=== PATIENT | female | born 1980 | race Caucasian/White ===

== ENCOUNTER 2018-02-08 17:23 | Emergency (ER) | payer OTHER ==
[2018-02-08] MEDS ORDERED: PROMETHAZINE HCL 25 MG/ML INJ IVP ONE (18:29)
[2018-02-08 18:33] LABS: PLATELET COUNT 303 10^3/uL (150-400)
--- NOTE | 2018-02-08 18:46 | EDPHY ---
General Time Seen by Provider: 02/08/18 18:25 Narrative: CHIEF COMPLAINT: Abdominal pelvic pain HISTORY OF PRESENT ILLNESS: Patient presents by private vehicle with her spouse with complaints of abdominal pelvic pain. Pain originally started 1-2 weeks ago. It has been constant duration. Located in the umbilicus and now into the right lower quadrant and pelvis. She states the pain significantly increased over the past 3 hr after eating. Pain typically does worsen the course of several hours after eating but then improved but does resolved. Associated with nausea before but not vomiting. No bloody stools or emesis. No constipation. She is status post appendectomy and does have history of ovarian cyst, but she feels these are 2 separate types of pain. LMP: January 15, 2018 REVIEW OF SYSTEMS: 10 systems were reviewed and negative with the exception of the elements mentioned in the history of present illness. PCP: None SPECIALISTS: Playground Attendant at [facility], Dr. Vines PAST MEDICAL HISTORY: Ovarian cysts, migraines, appendicitis PAST SURGICAL HISTORY: Appendectomy, ovarian cystectomy, breast cystectomy, bunionectomy SOCIAL HISTORY: Never smoker. Lives independently with her significant other. 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 Conversing in complete sentences. Nontoxic well-appearing Head: normocephalic, atraumatic Eyes: Pupils equal and round, no conjunctival pallor or injection ENT, Mouth: Mucous membranes moist. Airway patent Neck: Normal inspection, supple, non-tender Respiratory: Lungs are clear to auscultation Cardiovascular: Regular rate and rhythm. No murmur Gastrointestinal: Abdomen is soft and nondistended. There is tenderness in the umbilicus and the right lower abdomen and suprapubic abdomen. No tympany. No rigidity. No guarding. Bowel sounds present all 4 quadrants. No CVA tenderness. Back: non-tender, no bony abnormalities Neurological: A&O, nonfocal, normal gait Skin: Warm and dry, no rash Extremities: Nontender, no pedal edema Psychiatric: Mood and affect normal DIFFERENTIAL DIAGNOSES: Including but not limited to colitis, diverticulitis, inflammatory bowel, irritable bowel, cholecystitis, cholelithiasis, ovarian cyst, ovarian torsion, uterine fibroids, endometriosis MDM: 6:25 p.m. Lower abdominal pelvic pain of 2-3 weeks duration with severe worsening over the past 3 hr with 2 episodes of vomiting ongoing nausea. She does have a history of ovarian cysts, thus I immediately ordered ultrasound of the pelvis to rule out torsion. I feel this is highly unlikely. Laboratory studies are pending. She is in no acute distress. I have ordered pain medication IV fluid. She does not meet SIRS criteria. She does not have any peritonitis. No active vomiting. 7:30 p.m. Laboratory studies are unremarkable. Urinalysis pending. Ultrasound has been performed but not yet read. She is requesting further pain medication which I have ordered. 9:05 p.m. Notified by radiologist. No acute abnormality of the ultrasound. I have reviewed the study. 9:15 p.m. Patient re-evaluated. She still complaining of pain. We had a very lengthy discussion regarding other etiologies and the duration of her symptoms. We discussed CT scan abdomen pelvis which I do feel is reasonable. We discussed risks, benefits alternatives, and The patient agrees to proceed. 9:50 p.m. Notified by radiologist Dr. Rome. No finding on the CT scan that explains her pain. 10:00 p.m. Patient re-evaluated. We discussed the negative CT scanned with some incidental changes of the liver. Some of these are no under some of these are new. We discussed other etiologies including endometriosis. I offered admission to the hospital for further pain control and workup but she has declined. We discussed the risks, benefits and alternatives, and I do feel that she is capable making this decision. I also feel she is stable for discharge home close follow-up. She has establish care with gynecology. We discussed short course of pain medication nausea medication. We discussed returning here if her symptoms do not improve the next 24 hr. We also discussed returning here for any worsening of symptoms, diarrhea, constipation, fever chest pain or shortness of breath. The patient would like to go home and I do feel this is reasonable. I have answered all her questions. She is discharged home stable condition with her spouse. SUPERVISION: Patient was independently examined, but I discussed the case with my secondary supervising physician Dr. Lopez CONSULTATION: None - Diagnostics Imaging Results: Imaging Impressions Pelvic/Renal Ultrasound 02/08/18 18:29 Impression: No source for right pelvic pain identified. Results called to Francisco Mejia at 8:[address] 10/23/18 21:14 Impression: Normal. No source for abdominal pain identified. Results called to Francisco Mejia at 9:43 PM. General information for patients regarding this examination can be found at [email or web address]. If you have questions or comments about this report, please contact me at (hospital) or [phone] (cell). - History Smoking Status: Never smoked - Objective Vital Signs: Initial Vital Signs Temperature (C) 98.8 F 02/08/18 17:45 Heart Rate 91 02/08/18 17:45 Respiratory Rate 16 02/08/18 17:45 Blood Pressure 118/78 02/08/18 17:45 O2 Sat (%) 97 02/08/18 17:45 O2 Delivery Mode Room Air Allergies/Adverse Reactions: ketoconazole Allergy (Verified 02/08/18 17:44) Home Medications: Medication Instructions Recorded Cholecalciferol Vit D3 [Vitamin D3 1,000 units PO DAILY 08/08/12 1000 units (OTC)] Completed By Truck Repair Service Estimator 08/08/12 08/08/12 Herbals/Supplements -Info Only 1 each PO AD 08/08/12 Multivitamins [Tab-A-Tanner] 1 each PO DAILY 08/08/12 Vitamin B Complex [B Complex] 1 each PO DAILY 08/08/12 Imitrex 02/08/18 Ondansetron Odt [Zofran Odt 4 mg 4 mg PO Q6 PRN #12 tab 02/08/18 (*)] Promethazine HCl 02/08/18 oxyCODONE HCL/ACETAMINOPHEN 1 each PO Q4-6PRN PRN #11 tablet 02/08/18 [Percocet 5-325 mg Tablet] Laboratory Results: Laboratory Results 02/08/18 18:18 02/08/18 18:18 02/08/18 02/08/18 02/08/18 19:30 18:18 18:18 WBC RBC Hgb Hct MCV MCH MCHC RDW Plt Count MPV Neut % (Auto) Lymph % (Auto) Baldwin % (Auto) Eos % (Auto) Baso % (Auto) Nucleat RBC Rel Count Absolute Neuts (auto) Absolute Lymphs (auto) Absolute Monos (auto) Absolute Eos (auto) Absolute Basos (auto) Absolute Nucleated RBC Immature Gran % Immature Gran # Sodium 139 mEq/L mEq/L (135-145) Potassium 4.0 mEq/L mEq/L (3.3-5.0) Chloride 107 mEq/L mEq/L (97-110) Carbon Dioxide 24 mEq/l mEq/l (22-31) Anion Gap 8 mEq/L mEq/L (6-14) BUN 11 mg/dL mg/dL (7-23) Creatinine 0.7 mg/dL mg/dL (0.6-1.0) Estimated GFR > 60 Glucose 107 mg/dL H mg/dL (70-100) Calcium 9.8 mg/dL mg/dL (8.5-10.4) Total Bilirubin 0.3 mg/dL mg/dL (0.1-1.4) Conjugated Bilirubin 0.1 mg/dL mg/dL (0.0-0.5) Unconjugated Bilirubin 0.2 mg/dL mg/dL (0.0-1.1) AST 15 IU/L IU/L (14-46) ALT 19 IU/L IU/L (9-52) Alkaline Phosphatase 50 IU/L IU/L (38-126) Total Protein 6.8 g/dL g/dL (6.3-8.2) Albumin 4.1 g/dL g/dL (3.5-5.0) Lipase 168 IU/L IU/L (23-300) Beta HCG, Qual NEGATIVE Urine Color YELLOW Urine Appearance CLEAR Urine pH 6.0 (5.0-7.5) Ur Specific Roberts 1.010 (1.002-1.030) Urine Protein NEGATIVE (NEGATIVE) Urine Ketones NEGATIVE (NEGATIVE) Urine Blood NEGATIVE (NEGATIVE) Urine Nitrate NEGATIVE (NEGATIVE) Urine Bilirubin NEGATIVE (NEGATIVE) Urine Urobilinogen NEGATIVE EU EU (0.2-1.0) Ur Leukocyte Esterase NEGATIVE (NEGATIVE) Urine RBC 1-3 /hpf /hpf (0-3) Urine WBC 1-3 /hpf /hpf (0-3) Ur Epithelial Cells NONE SEEN /lpf /lpf (NONE-1+) Urine Bacteria TRACE /hpf H /hpf (NONE SEEN) Urine Mucus TRACE /lpf /lpf (NONE-1+) Urine Glucose NEGATIVE (NEGATIVE) 02/08/18 18:18 WBC 7.75 10^3/uL 10^3/uL (3.80-9.50) RBC 4.84 10^6/uL 10^6/uL (4.18-5.33) Hgb 13.7 g/dL g/dL (12.6-16.3) Hct 40.5 % % (38.0-47.0) MCV 83.7 fL fL (81.5-99.8) MCH 28.3 pg pg (27.9-34.1) MCHC 33.8 g/dL g/dL (32.4-36.7) RDW 12.4 % % (11.5-15.2) Plt Count 303 10^3/uL 10^3/uL (150-400) MPV 9.3 fL fL (8.7-11.7) Neut % (Auto) 71.7 % % (39.3-74.2) Lymph % (Auto) 18.8 % % (15.0-45.0) Baldwin % (Auto) 7.4 % % (4.5-13.0) Eos % (Auto) 1.7 % % (0.6-7.6) Baso % (Auto) 0.3 % % (0.3-1.7) Nucleat RBC Rel Count 0.0 % % (0.0-0.2) Absolute Neuts (auto) 5.56 10^3/uL 10^3/uL (1.70-6.50) Absolute Lymphs (auto) 1.46 10^3/uL 10^3/uL (1.00-3.00) Absolute Monos (auto) 0.57 10^3/uL 10^3/uL (0.30-0.80) Absolute Eos (auto) 0.13 10^3/uL 10^3/uL (0.03-0.40) Absolute Basos (auto) 0.02 10^3/uL 10^3/uL (0.02-0.10) Absolute Nucleated RBC 0.00 10^3/uL 10^3/uL (0-0.01) Immature Gran % 0.1 % % (0.0-1.1) Immature Gran # 0.01 10^3/uL 10^3/uL (0.00-0.10) Sodium Potassium Chloride Carbon Dioxide Anion Gap BUN Creatinine Estimated GFR Glucose Calcium Total Bilirubin Conjugated Bilirubin Unconjugated Bilirubin AST ALT Alkaline Phosphatase Total Protein Albumin Lipase Beta HCG, Qual Urine Color Urine Appearance Urine pH Ur Specific Roberts Urine Protein Urine Ketones Urine Blood Urine Nitrate Urine Bilirubin Urine Urobilinogen Ur Leukocyte Esterase Urine RBC Urine WBC Ur Epithelial Cells Urine Bacteria Urine Mucus Urine Glucose Medications Given: Discontinued Medications Hydromorphone HCl (Dilaudid) 1 mg IVP EDNOW ONE Stop: 02/08/18 20:01 Last Admin: 02/08/18 20:11 Dose: 1 mg Ketorolac Tromethamine (Toradol) 30 mg IVP EDNOW ONE Stop: 02/08/18 21:15 Last Admin: 02/08/18 21:37 Dose: 30 mg Morphine Sulfate (Morphine) 6 mg IVP EDNOW ONE Stop: 02/08/18 18:30 Last Admin: 02/08/18 18:37 Dose: 6 mg Ondansetron HCl (Zofran Odt 4 Mg Prepack#2) 1 btl TAKEHOME EDNOW ONE Stop: 02/08/18 22:13 Last Admin: 02/08/18 22:26 Dose: 1 btl Oxycodone/Acetaminophen (Percocet 5/325mg Prepack#4) 1 btl TAKEHOME EDNOW ONE Stop: 02/08/18 22:12 Last Admin: 02/08/18 22:27 Dose: 1 btl Promethazine HCl (Phenergan) 12.5 mg IVP EDNOW ONE Stop: 02/08/18 18:30 Last Admin: 02/08/18 18:36 Dose: 12.5 mg Departure - Departure Disposition: Home, Routine, Self-Care Clinical Impression: Abdominal pain Qualifiers: Abdominal location: periumbilical Qualified Code(s): R10.33 - Periumbilical pain Condition: Good Instructions: Oxycodone/Acetaminophen (By mouth), Ondansetron (By mouth), Acute Abdominal Pain (ED), Abdominal Pain (ED) Additional Instructions: 1. Pain medication as prescribed as needed 2. Zofran as prescribed as needed for nausea 3. Contact your established catering cook for outpatient care further workup 4. Contact the on-call primary care physician as provided for you 5. Return here if her symptoms worsen he developed fever, diarrhea, constipation , chest pain or shortness of breath Referrals: Tamiko Lomeli MD [Medical Doctor] - As per Instructions Roxanne Vines MD [Medical Doctor] - As per Instructions Prescriptions: Ondansetron Odt [Zofran Odt 4 mg (*)] 4 mg PO Q6 PRN #12 tab PRN Reason: Nausea/Vomiting, Use 1st oxyCODONE HCL/ACETAMINOPHEN [Percocet 5-325 mg Tablet] 1 each PO Q4-6PRN PRN # 11 tablet PRN Reason: Pain, Breakthrough
[2018-02-08] MEDS ORDERED: HYDROmorphONE/DILAUDID 1 MG/ML INJ IVP ONE (20:00)
[2018-02-08] MEDS ORDERED: KETOROLAC 30 MG/1 ML SDV IVP ONE (21:14)
[2018-02-08] MEDS ORDERED: IOPAMIDOL (ISOVUE-300) 100 ML BTL ONE (21:17)
[2018-02-08] MEDS ORDERED: OXYCODONE/APAP 5/325MG PREPACK#4 BTL TAKEHOME ONE (22:11)
[2018-02-08] MEDS ORDERED: ONDANSETRON 4MG PREPACK#2 BTL TAKEHOME ONE (22:12)
[2018-02-08 22:35] VITALS: BP 116/80
== END 2018-02-08 22:34 | disposition home or self-care (01) ==
DX: R10.33 Periumbilical pain (principal); R11.0 Nausea
CPT/HCPCS: 96374; J1170; J1885; J2270; J2550; Q9967

== ENCOUNTER → 2018-08-22 | Outpatient (CLI) | payer MEDICAID | LOC: BMCIMAGING 10:00 | DX: R92.0 Mammographic microcalcification found on diagnostic imaging of breast (principal) ==

== ENCOUNTER → 2018-08-30 | Outpatient (CLI) | payer MEDICAID ==
[~2018-08-30] MED LIST: BUPIVACAINE 0.5% 30 ML SDV ONE; LIDOCAINE 1% 300 MG/30 ML SDV ONE
== END ==
LOC: FIMAGING 07:11
PROC: 0HBU3ZX Excision of Left Breast, Percutaneous Approach, Diagnostic (ICD-10-PCS; principal; 2018-08-30)
DX: C50.512 Malignant neoplasm of lower-outer quadrant of left female breast (principal)

== ENCOUNTER → 2018-09-16 | Outpatient (CLI) | payer MEDICAID | LOC: FIMAGING 14:45 ==

== ENCOUNTER → 2018-10-05 | Outpatient (CLI) | payer MEDICAID | LOC: FIMAGING 07:22 ==